=== PATIENT | male | born 1990 | race Caucasian/White ===

== ENCOUNTER 2021-06-17 16:21 | Emergency (ER) | payer SELFPAY ==
[~2021-06-17] VITALS: Ht 170.2 cm; Wt 76.0 kg
[2021-06-17] MEDS ORDERED: LORAZEPAM 2MG/ML CPJ IM ONE (18:15)
[2021-06-17] MEDS ORDERED: HALOPERIDOL LACTATE 5MG/ML VIAL IM ONE (18:15)
[2021-06-17 18:23] LABS: BASOPHILS % 0.4 % (0.0-2.0); EOSINOPHILS % 0.5 % (0.0-5.0); HEMATOCRIT. 41.8 % (42.0-52.0); HEMOGLOBIN. 14.5 g/dL (14.0-18.0); LYMPHOCYTES % 11.7 % (20.0-50.0); MEAN CORPUSCULAR HEMOGLOBIN 32.1 pg (28.0-32.0); MEAN CORPUSCULAR VOLUME 92.7 fL (80.0-94.0); NEUTROPHILS % 81.4 % (40.0-76.0); RED BLOOD CELL COUNT 4.52 mill/uL (4.7-6.1); RED CELL DISTRIBUTION WIDTH 13.5 % (11.6-14.6)
[2021-06-17 18:38] LABS: CHLORIDE 105 mEq/L (98-107)
[2021-06-17 18:44] LABS: ETHANOL BLOOD < 10 mg/dL
[2021-06-17 19:19] LABS: MEAN PLATELET VOLUME 9.3 fl (7.4-10.4); PLATELET 173 x1000/uL (130-400)
[2021-06-17 22:26] LABS: CLARITY URINE CLEAR (CLEAR); COLOR URINE YELLOW (YELLOW); PH URINE 5.5 (4.5-8.0); SPECIFIC GRAVITY URINE 1.026 (1.005-1.030)
[2021-06-17 22:27] LABS: PROTEIN URINE NEGATIVE (NEGATIVE)
[2021-06-17 22:28] LABS: KETONES URINE 1+ (NEGATIVE); LEUKOCYTE ESTERASE URINE NEGATIVE (NEGATIVE); NITRITE URINE NEGATIVE (NEGATIVE); OCCULT BLOOD URINE NEGATIVE (NEGATIVE)
[2021-06-17 22:32] LABS: *BARBITURATES SCREEN URINE NEGATIVE (NEGATIVE)
[2021-06-17 22:33] LABS: *AMPHETAMINES SCREEN URINE PRESUMTIVE POSITIVE (NEGATIVE); *BENZODIAZEPINES SCREEN URINE NEGATIVE (NEGATIVE); *COCAINE SCREEN URINE PRESUMTIVE POSITIVE (NEGATIVE); CANNABINOID URINE SCREEN NEGATIVE (NEGATIVE); METHADONE URINE SCREEN NEGATIVE (NEGATIVE); OPIATES URINE SCREEN NEGATIVE (NEGATIVE); PHENCYCLIDINE URINE SCREEN NEGATIVE (NEGATIVE)
[2021-06-18 04:25] VITALS: BP 111/60
== END 2021-06-18 04:25 | disposition home or self-care (01) ==
LOC: ER 16:21
DX: T43.621A Poisoning by amphetamines, accidental (unintentional), initial encounter (principal); F15.129 Other stimulant abuse with intoxication, unspecified; R45.6 Violent behavior; R45.1 Restlessness and agitation; T40.5X1A Poisoning by cocaine, accidental (unintentional), initial encounter; F14.129 Cocaine abuse with intoxication, unspecified; R03.0 Elevated blood-pressure reading, without diagnosis of hypertension; R94.31 Abnormal electrocardiogram [ECG] [EKG]; Z78.1 Physical restraint status; Y92.488 Other paved roadways as the place of occurrence of the external cause
CPT/HCPCS: 36415; 80053; 80305; 80307; 80320; 80329; 81003; 85025; 93005; 96372; 99285; J1630; J2060; Z7610; G0480